=== PATIENT | female | born 1980 | race Caucasian/White ===

== ENCOUNTER 2021-07-11 09:08 | Emergency (ER) | payer OTHER ==
[2021-07-11] MEDS: fentaNYL 100 MCG/2 ML SDV IVPUSH ONE ×2 (09:41→10:25)
[2021-07-11] MEDS: Ondansetron 4 MG/2 ML SDV IVPUSH ONE (09:42)
[2021-07-11] MEDS: Propofol 200 MG/20 ML SDV ONE (10:39)
[2021-07-11] MEDS: Propofol 200 MG/20 ML SDV IVPUSH ONE (11:00)
[2021-07-11] MEDS: Acetaminophen/oxyCODONE 325-5 MG Tab PO ONE (11:22)
== END 2021-07-11 12:02 | disposition home or self-care (01) ==
LOC: JD.ED 09:08
DX: S52.502A Unspecified fracture of the lower end of left radius, initial encounter for closed fracture (principal); S52.602A Unspecified fracture of lower end of left ulna, initial encounter for closed fracture; Z79.899 Other long term (current) drug therapy; W18.30XA Fall on same level, unspecified, initial encounter
CPT/HCPCS: 25605; 73100-26-LT; 73100-LT; 96374; 99283-25; A9270-GY; J2405; J2704; J3010

== ENCOUNTER 2021-07-19 09:22 | Day surgery (SDC) | payer OTHER ==
[~2021-07-19 09:22] MED LIST: Lactated Ringers 1,000 ML IV SCH; Lidocaine 1%/Sod Bicarbonate in NS 8.4% 1 ML Syringe IDERM PRN; Sodium Chloride 0.9% 10 ML Syringe FLUSH PRN; Sodium Chloride 0.9% 10 ML Syringe FLUSH SCH
[2021-07-19] MEDS ORDERED: fentaNYL 250 MCG/5 ML SDV ONE (09:40)
[2021-07-19] MEDS ORDERED: Propofol 200 MG/20 ML SDV ONE ×5 (09:40→13:18)
[2021-07-19] MEDS ORDERED: Midazolam 1 MG/ML 2 ML SDV ONE (09:40)
[2021-07-19] MEDS ORDERED: Dexamethasone 4 MG/ML 5 ML MDV ONE (09:47)
[2021-07-19] MEDS ORDERED: Ondansetron 4 MG/2 ML SDV ONE (09:47)
[2021-07-19] MEDS ORDERED: Citric Acid/Sodium Citrate Solution 30 ML Cup PO ONE (10:59)
[2021-07-19] MEDS ORDERED: Scopolamine 1.5 MG Transdermal Patch TOP ONE (11:15)
[2021-07-19] MEDS ORDERED: Pantoprazole 40 MG Tab.CR PO SCH (11:30)
[2021-07-19] MEDS ORDERED: Bupivacaine 0.25% 10 ML SDV ONE (11:50)
[2021-07-19] MEDS ORDERED: ceFAZolin 1 GM Vial ONE (12:22)
[2021-07-19] MEDS ORDERED: Lactated Ringers 1,000 ML ONE (12:26)
[2021-07-19] MEDS ORDERED: HYDROmorphone 0.5 MG/0.5 ML Syringe ONE ×4 (12:46→13:10)
[2021-07-19] MEDS ORDERED: Ketorolac 30 MG/ML SDV ONE (12:52)
[2021-07-19] MEDS ORDERED: Ketamine 500 mg/10 ML MDV ONE (13:05)
[2021-07-19] MEDS ORDERED: Ondansetron 4 MG/2 ML SDV IVPUSH PRN (13:56)
[2021-07-19] MEDS ORDERED: fentaNYL 100 MCG/2 ML SDV IVPUSH PRN (13:56)
[2021-07-19] MEDS: HYDROmorphone 0.5 MG/0.5 ML Syringe IVPUSH PRN ×2 (14:15→14:25)
[2021-07-19] MEDS ORDERED: oxyCODONE 5 MG Tab PO ONE (14:51)
[2021-07-19] MEDS ORDERED: Lidocaine 1% 0 ML ONE (15:22)
== END 2021-07-19 16:20 | disposition home or self-care (01) ==
LOC: JD.SDS 09:22
PROVIDERS: ATTEND Orthopaedic Surgery
DX: S52.571A Other intraarticular fracture of lower end of right radius, initial encounter for closed fracture (principal); S52.611A Displaced fracture of right ulna styloid process, initial encounter for closed fracture; J45.909 Unspecified asthma, uncomplicated; K21.9 Gastro-esophageal reflux disease without esophagitis; J45.20 Mild intermittent asthma, uncomplicated; E66.9 Obesity, unspecified; Z98.890 Other specified postprocedural states; Z68.36 Body mass index [BMI] 36.0-36.9, adult
CPT/HCPCS: 25608; 76000; A9270; C1713; C1776; J0690; J1100; J1170; J1885; J2250; J2370; J2405; J2704; J3010; J3490; J7120; 01830

== ENCOUNTER 2022-02-10 09:48 | Day surgery (SDC) | payer OTHER ==
[2022-02-10] MEDS ORDERED: Propofol 200 MG/20 ML SDV ONE (09:58)
[2022-02-10] MEDS ORDERED: Lidocaine 1% 4 ML ONE (09:58)
[2022-02-10] MEDS ORDERED: fentaNYL 100 MCG/2 ML SDV ONE ×2 (09:59→10:40)
[2022-02-10] MEDS ORDERED: ceFAZolin 2 GM Vial ONE (09:59)
[2022-02-10] MEDS ORDERED: Midazolam 1 MG/ML 2 ML SDV ONE (09:59)
[2022-02-10] MEDS ORDERED: Bupivacaine 0.25% 10 ML SDV ONE ×2 (10:11→10:12)
[2022-02-10] MEDS ORDERED: Ondansetron 4 MG/2 ML SDV ONE (10:39)
[2022-02-10] MEDS ORDERED: Ketorolac 30 MG/ML SDV ONE (10:39)
[2022-02-10] MEDS ORDERED: Ondansetron 4 MG/2 ML SDV IVPUSH PRN (10:47)
[2022-02-10] MEDS ORDERED: diphenhydrAMINE 50 MG/ML SDV IVPUSH PRN (10:47)
[2022-02-10] MEDS: fentaNYL 100 MCG/2 ML SDV IVPUSH PRN ×2 (11:40→12:08)
[2022-02-10] MEDS ORDERED: oxyCODONE 5 MG Tab PO SCH (12:13)
== END 2022-02-10 13:15 | disposition home or self-care (01) ==
LOC: JD.SDS 09:48
PROVIDERS: ATTEND Orthopaedic Surgery
DX: T84.84XA Pain due to internal orthopedic prosthetic devices, implants and grafts, initial encounter (principal); K21.9 Gastro-esophageal reflux disease without esophagitis; J45.909 Unspecified asthma, uncomplicated; Z79.899 Other long term (current) drug therapy; Z98.890 Other specified postprocedural states
CPT/HCPCS: 01830; 76000; 76000-26; A9270-GY; J0690; J1885; J2250; J2405; J2704; J3010; J3490; J7120

== ENCOUNTER 2022-11-25 18:56 | Emergency (ER) | payer OTHER ==
[2022-11-25] MEDS ORDERED: Sodium Chloride 0.9% 1,000 ML IV ONE ×2 (19:39→20:58)
[2022-11-25] MEDS ORDERED: HYDROmorphone 1 MG/ML Syringe IVPUSH ONE (19:39)
[2022-11-25] MEDS ORDERED: Sodium Chloride 0.9% 10 ML Syringe FLUSH PRN (19:39)
[2022-11-25] MEDS ORDERED: Ondansetron 4 MG/2 ML SDV IVPUSH ONE (19:39)
[2022-11-25 20:03] LABS: BASOPHILS ABSOLUTE AUTO 0.02 K/mm3 (0.01-0.08); BASOPHILS PERCENT AUTO 0.1 % (0.1-1.2); EOSINOPHILS ABSOLUTE AUTO 0.06 K/mm3 (0.04-0.36); EOSINOPHILS PERCENT AUTO 0.4 (0.7-5.8); HEMATOCRIT 37.8 % (34.1-44.9); HEMOGLOBIN 12.5 gm/dl (11.2-15.7); IMMATURE GRAN ABSOLUTE AUTO 0.03 K/mm3 (0.00-0.10); IMMATURE GRAN PERCENT AUTO 0.2 % (<=1.0); LYMPHOCYTES ABSOLUTE AUTO 2.67 K/mm3 (1.18-3.74); LYMPHOCYTES PERCENT AUTO 19.5 % (19.3-51.7); MEAN CORPUSCULAR HEMOGLOBIN 30.5 pg (25.6-32.2); MEAN CORPUSCULAR HGB CONC 33.1 g/dl (32.2-35.5); MEAN CORPUSCULAR VOLUME 92.2 fl (79.4-94.8); MEAN PLATELET VOLUME 10.3 fl (9.4-12.3); MONOCYTES ABSOLUTE AUTO 0.92 K/mm3 (0.24-0.36); MONOCYTES PERCENT AUTO 6.7 % (4.7-12.5); NEUTROPHILS ABSOLUTE AUTO 10.01 K/mm3 (1.56-6.13); NEUTROPHILS PERCENT AUTO 73.1 % (34.0-71.1); PLATELET COUNT,PLT 279 K/mm3 (182-369); WHITE BLOOD CELL COUNT,WBC 13.71 K/mm3 (3.98-10.04)
[2022-11-25] MEDS ORDERED: Iopamidol 612 MG/ML 100 ML Bottle IVPUSH ONE (20:10)
[2022-11-25 20:24] LABS: A/G RATIO 1.1 (1-2); ALBUMIN 3.8 g/dl (3.4-5.0); ANION GAP 16.5 (5-15); BILIRUBIN TOTAL 0.4 mg/dL (0.2-1.0); BUN/CREATININE RATIO 16.4 (14-18); C-REACTIVE PROTEIN 0.6 mg/dL (<1.0); CALCIUM 9.4 mg/dL (8.5-10.1); CREATININE 1.1 mg/dL (0.55-1.02); EST CRCL DRUG DOSING (CG) 63.64 mL/min; MAGNESIUM 1.7 mg/dL (1.8-2.4); POTASSIUM,K 3.5 mEq/L (3.5-5.1); PROTEIN TOTAL,TP 7.2 g/dl (6.4-8.2)
[2022-11-25] MEDS ORDERED: HYDROmorphone 1 MG/ML Syringe IVPUSH PRN (20:58)
[2022-11-25] MEDS ORDERED: fentaNYL 100 MCG/2 ML SDV IVPUSH PRN (20:58)
[2022-11-25] MEDS ORDERED: Ondansetron 4 MG/2 ML SDV IVPUSH PRN (21:02)
[2022-11-25] MEDS ORDERED: HYDROmorphone 1 MG/ML Syringe IVPUSH STA (21:18)
== END 2022-11-25 22:05 ==
LOC: JD.ED 18:56
DX: K91.89 Other postprocedural complications and disorders of digestive system (principal); K56.7 Ileus, unspecified; K91.0 Vomiting following gastrointestinal surgery; J45.909 Unspecified asthma, uncomplicated; Z79.899 Other long term (current) drug therapy
CPT/HCPCS: 36415; 74177; 80053; 83690; 83735; 85025; 86140; 96361; 96374; 96375; 96376; 99285; J1170; J2405; J7030